=== PATIENT | female | born 1965 | race Caucasian/White ===

== ENCOUNTER 2016-10-28 01:38 | Emergency (ER) | payer MEDICAID, OTHER ==
[~2016-10-28] VITALS: Ht 157.5 cm; Wt 49.5 kg
[2016-10-28 01:55] VITALS: Ht 157.5 cm; Wt 49.5 kg
[2016-10-28] MEDS ORDERED: hydrALAzine 20 MG INJ IV ONE (02:30)
[2016-10-28 02:31] LABS: ADD SCAN DIFF NO
[2016-10-28 02:33] LABS: ABNORMAL IP MESSAGE 1; HEMATOCRIT 32.5 % (37.0-47.0); MEAN CORPUSCULAR HEMOGLOBIN 25.9 pg (29.0-33.0); MEAN CORPUSCULAR HGB CONC 30.8 g/dl (32.0-37.0); MEAN CORPUSCULAR VOLUME 84.2 fl (82.0-101.0); MEAN PLATELET VOLUME 9.3 fl (7.4-10.4); PLATELET COUNT 181 10^3/UL (140-415); RED BLOOD COUNT 3.86 10^6/ul (4.20-5.40); RED CELL DISTRIBUTION WIDTH 18.8 % (11.5-14.5); WHITE BLOOD COUNT 12.8 10^3/ul (4.8-10.8)
[2016-10-28 02:48] LABS: INR 1.03; PARTIAL THROMBOPLASTIN TIME 33.2 Sec (25.0-35.0); PROTIME 13.5 Sec (12.2-14.2); PT RATIO 1.1
[2016-10-28 03:00] LABS: LYMPHOCYTES # 10.8 10^3/ul (0.8-2.9); PLATELET ESTIMATE PLT APPEAR ADEQUATE
[2016-10-28] MEDS ORDERED: NAPR220C2 PO (03:04)
[2016-10-28] MEDS ORDERED: OMEG10006 PO (03:04)
[2016-10-28] MEDS ORDERED: OMEG300C3 PO (03:04)
[2016-10-28] MEDS ORDERED: CITRACAL PO (03:04)
[2016-10-28] MEDS ORDERED: IRON1TAB8 PO (03:04)
[2016-10-28] MEDS ORDERED: [UNRECOGNIZED DRUG - OTHER] (03:04)
[2016-10-28] MEDS ORDERED: LORAZEPAM 2 MG INJ IV ONE (03:30)
[2016-10-28 03:33] LABS: ALANINE AMINOTRANSFERASE 59 IU/L (13-69); ALBUMIN 4.2 g/dl (3.3-4.9); ALBUMIN/GLOBULIN RATIO 1.07; ALKALINE PHOSPHATASE 346 IU/L (42-121); ANION GAP 12 (8-16); ASPARTATE AMINO TRANSFERASE 75 IU/L (15-46); BILIRUBIN,INDIRECT 0.2 mg/dl (0-1.1); BILIRUBIN,TOTAL 0.2 mg/dl (0.2-1.3); BLOOD UREA NITROGEN 16 mg/dl (7-20); CALCIUM 9.2 mg/dl (8.4-10.2); CARBON DIOXIDE 25 mmol/L (21-31); CHLORIDE 105 mmol/L (97-110); CREATININE 0.86 mg/dl (0.44-1.00); GLUCOSE 107 mg/dl (70-220); POTASSIUM 3.8 mmol/L (3.5-5.1); SODIUM 138 mmol/L (135-144); TOTAL PROTEIN 8.1 g/dl (6.1-8.1)
[2016-10-28 03:46] LABS: B-TYPE NATRIURETIC PEPTIDE 248 PG/ML (0-125)
[2016-10-28 03:48] LABS: TROPONIN-I < 0.012 ng/ml (0.00-0.12)
[2016-10-28 04:30] VITALS: BP 129/76; PULSE 114; RESP 20
--- NOTE | 2016-10-28 04:47 | ERD ---
ER Documentation Chief Complaint Date/Time DATE: 10/28/16 TIME: 04:46 Chief Complaint bilateral arm pain started today HPI This is a 50-year-old female consequence of bilateral pain started today. She has been going on over the past 6 months. It starts in her neck and radiates down her arms. No fevers no chills. No nausea no vomiting. No other current complaints. ROS All systems reviewed and are negative except as per history of present illness. Medications Home Meds Reported Medications [place]-3 Fatty Acids (OMEGA-3) 1,000 Mg Capsule, 1000 MG PO, CAP 10/28/16 [place]-3 Fatty Acids (Fish Oil) 300 Mg Capsule, 300 MG PO, CAP 10/28/16 Calcium Citrate* (Citracal*) 950 Mg Tab, 950 MG PO DAILY, TAB 10/28/16 Iron-Multivits,Stress Formula (Stress Formula with Iron) 1 Each Tablet, 1 TAB PO DAILY, TAB 10/28/16 Naproxen* (Aleve*) 220 Mg Capsule, 440 MG PO PRN, #60 CAP 10/28/16 Discontinued Reported Medications [Art] No Conflict Check 10/28/16 Allergies Allergies: Coded Allergies: No Known Allergy (Unverified , 10/28/16) PMhx/Soc Medical and Surgical Hx: pt denies Medical Hx History of Surgery: Yes (CHOLECYSTECTOMY) Anesthesia Reaction: No Hx Neurological Disorder: No Hx Respiratory Disorders: No Hx Cardiac Disorders: No Hx Psychiatric Problems: No Hx Miscellaneous Medical Probl: No Hx Alcohol Use: No Hx Substance Use: No Hx Tobacco Use: No Smoking Status: Never smoker Physical Exam Vitals Vital Signs Date Time Temp Pulse Resp B/P Pulse Ox O2 Delivery O2 Flow Rate FiO2 10/28/16 02:56 111 22 148/96 99 Room Air 10/28/16 01:55 99.8 109 20 144/115 98 Physical Exam Const: [] Head: Atraumatic Eyes: Normal Conjunctiva ENT: Normal External Ears, Nose and Mouth. Neck: Full range of motion..~ No meningismus. Resp: Clear to auscultation bilaterally Cardio: Regular rate and rhythm, no murmurs Abd: Soft, non tender, non distended. Normal bowel sounds Skin: No petechiae or rashes Back: No midline or flank tenderness Ext: No cyanosis, or edema Neur: Awake and alert Psych: Normal Mood and Affect Result Diagram: 10/28/1620410/28/16 0205 Results 24 hrs Laboratory Tests Test 10/28/16 02:05 10/28/16 02:09 White Blood Count 12.810^3/ul Red Blood Count 3.8610^6/ul Hemoglobin 10.0g/dl Hematocrit 32.5% Mean Corpuscular Volume 84.2fl Mean Corpuscular Hemoglobin 25.9pg Mean Corpuscular Hemoglobin Concent 30.8g/dl Red Cell Distribution Width 18.8% Platelet Count 57812^3/UL Mean Platelet Volume 9.3fl Neutrophils % 8.0% Lymphocytes % 84.0% Monocytes % 8.0% Neutrophils # 1.010^3/ul Lymphocytes # 10.810^3/ul Monocytes # 1.010^3/ul Platelet Estimate PLT APPEAR ADEQUATE Prothrombin Time 13.5Sec Prothrombin Time Ratio 1.1 INR International Normalized Ratio 1.03 Activated Partial Thromboplast Time 33.2Sec Sodium Level 138mmol/L Potassium Level 3.8mmol/L Chloride Level 105mmol/L Carbon Dioxide Level 25mmol/L Anion Gap 12 Blood Urea Nitrogen 16mg/dl Creatinine 0.86mg/dl Glucose Level 107mg/dl Calcium Level 9.2mg/dl Total Bilirubin 0.2mg/dl Direct Bilirubin 0.00mg/dl Indirect Bilirubin 0.2mg/dl Aspartate Amino Transf (AST/SGOT) 75IU/L Alanine Aminotransferase (ALT/SGPT) 59IU/L Alkaline Phosphatase 346IU/L Troponin I < 0.012ng/ml B-Type Natriuretic Peptide 248PG/ML Total Protein 8.1g/dl Albumin 4.2g/dl Globulin 3.90g/dl Albumin/Globulin Ratio 1.07 Bedside Glucose 99mg/dL Current Medications Medications (Trade) Dose Ordered Sig/Saniya Route PRN Reason Start Time Stop Time Status Last Admin Dose Admin Hydralazine HCl (Apresoline) 20 mg ONCE ONCE IV 10/28/16 02:30 10/28/16 02:31 DC 10/28/16 02:24 Lorazepam (Ativan) 1 mg ONCE ONCE IV 10/28/16 03:30 10/28/16 03:31 DC 10/28/16 03:51 Procedures/MDM EKG: Rate/Rhythm: [Normal Sinus Rhythm] QRS, ST, T-waves: [No changes consistent w/ acute ischemia] Impression: [No evidence of ischemia or arrhythmia] Chest X-ray 1V Interpreted by me: Soft Tissue: No acute abnormalities Bones: No acute abnormalities Mediastinum/Cardiac Silhouette/Lungs: [No acute abnormalities] Patient's thoracic symptoms have stabilized while in the department and are stable for outpatient follow up. Exam and work up not consistent w/ ischemia, arrhythmia, PE or dissection. Symptomology consistent with cervical radiculopathy. The resolution of the administration of benzodiazepine. Patient will be discharged home a short course. Follow-up with PCP. Departure Diagnosis: Primary Impression: Cervical radiculopathy Additional Impression: Anxiety Condition: Stable BIGG HERNÁNDEZ Oct 28, 2016 04:47
[2016-10-28] MEDS ORDERED: LORA1TAB PO (04:48)
--- NOTE | 2016-10-28 07:52 | RADRPT ---
PROCEDURE: XR Chest. CLINICAL INDICATION: Abdominal pain TECHNIQUE: A single AP view of the chest was obtained. COMPARISON: None. FINDINGS: No focal airspace opacification, pleural effusion or pneumothorax is seen. The cardiomediastinal si lhouette is within normal limits for size. The osseous structures are unremarkable. IMPRESSION: No radiographic evidence of acute cardiopulmonary disease. RPTAT: HH .Brie Enamorado MD, MD Date Time Electronically viewed and signed by .Brie Enamorado MD, on 10/28/2016 07:52 .G/
== END 2016-10-28 04:53 | disposition home or self-care (01) ==
LOC: FTE 01:38 → E/R 04:53
DX: M54.12 Radiculopathy, cervical region (principal); F41.9 Anxiety disorder, unspecified; R10.9 Unspecified abdominal pain
CPT/HCPCS: 36415; 71010; 80053; 82962; 83880; 84484; 85025; 85610; 85730; 93005; 96374; 96375; J0360; J2060; Z7502

== ENCOUNTER 2016-12-31 02:19 | Emergency (ER) | payer MEDICAID ==
[~2016-12-31] VITALS: Ht 160 cm; Wt 48.0 kg
[~2016-12-31 02:19] MED LIST: CITRACAL PO; IRON1TAB8 PO; LORA1TAB PO; NAPR220C2 PO; OMEG10006 PO; OMEG300C3 PO
[2016-12-31 02:24] VITALS: Ht 160 cm; Wt 48.0 kg
[2016-12-31] MEDS ORDERED: ONDANSETRON 4 MG INJ IV STA (03:11)
[2016-12-31] MEDS ORDERED: morphine 4 MG/ML VIAL IV STA (03:11)
[2016-12-31] MEDS ORDERED: SOD CHLORIDE 0.9% 1,000 ML IV STA (03:11)
[2016-12-31 03:45] VITALS: BP 152/101; PULSE 98; RESP 20; TEMP 97.9
[2016-12-31] MEDS ORDERED: MULT9LIQ4 PO (04:02)
[2016-12-31] MEDS ORDERED: GEMF600T60 PO (04:02)
[2016-12-31] MEDS ORDERED: IPRA3AMP INHALATION (04:02)
[2016-12-31] MEDS ORDERED: UDMYL PO (04:02)
[2016-12-31] MEDS ORDERED: MAGN2400 PO (04:02)
[2016-12-31] MEDS ORDERED: BISA10SU55 RC (04:02)
[2016-12-31] MEDS ORDERED: LANT3I SC (04:02)
--- NOTE | 2016-12-31 04:15 | RADRPT ---
PROCEDURE: Abdominal ultrasound, limited. CLINICAL INDICATION: Abdominal pain. TECHNIQUE: Multiple real-time images were acquired of the patient's right upper abdomen utilizing a high resolution transducer. COMPARISON: None FINDINGS: The liver demonstrates increased echogenicity and size measuring 18.0 cm. There is no focal mass or intrahepatic biliary ductal dilatation. The portal vein is patent. The patient is status post cho lecystectomy. The common bile duct measures 4.1 mm in maximal dimension. The visualized portions o f the pancreas are unremarkable. No free fluid is identified. The right kidney is normal size and echogenicity measuring 9.8 cm. There is no focal renal mass or echogenic calculus identified. There is no obstructive uropathy. IMPRESSION: Enlarged liver with fatty infiltration. Status post cholecystectomy. .Gera Rangel MD, MD Date Time Electronically viewed and signed by .Gera Rangel MD, MD on 12/31/2016 04:15 .T/
[2016-12-31] MEDS ORDERED: HYDR-906 PO (04:25)
[2016-12-31] MEDS ORDERED: ACET325T45 PO (04:25)
[2016-12-31] MEDS ORDERED: SENN-53 PO (04:25)
[2016-12-31] MEDS ORDERED: [UNRECOGNIZED DRUG - CODE] PO (04:25)
[2016-12-31] MEDS ORDERED: OLAN5TAB5 PO (04:29)
[2016-12-31] MEDS ORDERED: CYAN100080 PO (04:29)
[2016-12-31] MEDS ORDERED: ASCO500S2 GTB (04:29)
[2016-12-31 04:35] LABS: ABNORMAL IP MESSAGE 1; BASOPHIL # 0.1 10^3/ul (0.0-0.1); BASOPHILS % 1.2 % (0.0-2.0); HEMATOCRIT 28.3 % (37.0-47.0); HEMOGLOBIN 8.8 g/dl (12.0-16.0); LYMPHOCYTES # 9.7 10^3/ul (0.8-2.9); LYMPHOCYTES % 86.5 % (15.0-51.0); MEAN CORPUSCULAR HEMOGLOBIN 24.6 pg (29.0-33.0); MEAN CORPUSCULAR HGB CONC 31.1 g/dl (32.0-37.0); MEAN CORPUSCULAR VOLUME 79.3 fl (82.0-101.0); MEAN PLATELET VOLUME 9.1 fl (7.4-10.4); MONOCYTE # 0.8 10^3/ul (0.3-0.9); MONOCYTES % 6.9 % (0.0-11.0); NEUTROPHILS % 5.2 % (39.0-77.0); NUCLEATED RED BLOOD CELLS% 0.2 /100WBC (0.0-0.0); PLATELET COUNT 191 10^3/UL (140-415); RED BLOOD COUNT 3.57 10^6/ul (4.20-5.40); RED CELL DISTRIBUTION WIDTH 19.4 % (11.5-14.5); WHITE BLOOD COUNT 11.2 10^3/ul (4.8-10.8)
[2016-12-31 04:41] LABS: ADD UMIC YES; UR ASCORBIC ACID NEGATIVE (NEGATIVE); UR BILIRUBIN (Dip) NEGATIVE (NEGATIVE); UR BLOOD (Dip) 1+ mg/dL (NEGATIVE); UR CLARITY SLIGHTLY CLOUDY (CLEAR); UR COLOR YELLOW (YELLOW); UR GLUCOSE (Dip) NEGATIVE (NEGATIVE); UR KETONES (Dip) NEGATIVE (NEGATIVE); UR LEUKOCYTE ESTERASE (Dip) 2+ Leu/ul (NEGATIVE); UR NITRITE (Dip) NEGATIVE (NEGATIVE); UR RBC 21 /HPF (0-5); UR SPECIFIC GRAVITY (Dip) 1.018 (1.003-1.030); UR SQUAMOUS EPITHELIAL CELL FEW /HPF (FEW); UR TOTAL PROTEIN (Dip) 1+ mg/dl (NEGATIVE); UR UROBILINOGEN (Dip) NEGATIVE (NEGATIVE)
[2016-12-31 04:46] LABS: POSITIVE DIFF @See below
[2016-12-31 04:56] LABS: ALBUMIN 3.1 g/dl (3.3-4.9); ALBUMIN/GLOBULIN RATIO 0.64; BILIRUBIN,INDIRECT 0.1 mg/dl (0-1.1); BILIRUBIN,TOTAL 0.1 mg/dl (0.2-1.3); CALCIUM 9.1 mg/dl (8.4-10.2); CREATININE 0.81 mg/dl (0.44-1.00); POTASSIUM 4.2 mmol/L (3.5-5.1); TOTAL PROTEIN 7.9 g/dl (6.1-8.1)
[2016-12-31] MEDS ORDERED: MELO-110 PO (05:17)
[2016-12-31] MEDS ORDERED: RANI150T9 PO (05:17)
--- NOTE | 2016-12-31 05:17 | ERD ---
ER Documentation Chief Complaint Date/Time DATE: 12/31/16 TIME: 05:16 Chief Complaint upper abd pain since 6 hours ago HPI 51-year-old female epigastric abdominal disease asthma. Patient has history of gastritis. Pain mild to moderate intensity with no exacerbating or alleviating factors. No fevers no chills. No other current complaints. ROS All systems reviewed and are negative except as per history of present illness. Medications Home Meds Active Scripts Lorazepam* (Lorazepam*) 1 Mg Tablet, 1 MG PO Q8, #10 TAB Prov:BIGG HERNÁNDEZ 10/28/16 Reported Medications Olanzapine* (Zyprexa*) 5 Mg Tablet, 5 MG PO DAILY, #30 TAB 12/31/16 Ascorbic Acid* (Vitamin C* Liq) 500 Mg/5 Ml Syrup, 500 MG GTB DAILY for SUPPLEMENT, ML 12/31/16 Cyanocobalamin* (Vitamin B-12*) 1,000 Mcg Tablet.sa, 1000 MCG PO DAILY for ANEMIA, TAB 12/31/16 Valproic Acid (As Sodium Salt) (Valproic Acid) 500 Mg/10 Ml Solution, 500 MG PO BID 12/31/16 Acetaminophen* (Acetaminophen*) 325 Mg Tablet, 650 MG PO Q4H Y for PAIN AND OR ELEVATED TEMP, #30 TAB Give 2 tabs PO every Q6H for MILD pain 12/31/16 Sennosides* (Senna Lax*) 8.6 Mg Tablet, 1 TAB PO Q12H for CONSTIPATION, TAB Give 2 tablets by mouth Q12H for CONSTIPATION HOLD FOR LBM. 12/31/16 Hydrocodone/Acetaminophen ([place] 5-325 Tablet) 1 Each Tablet, 1 EACH PO, TAB Give 1 tablet by mouth PRN for MODERATETO SEVERE PAIN (4-10)Q12H 12/31/16 Magaldrate/Simethicone* (Mag-Al Plus Suspension*) 30 Ml Oral.susp, 30 ML PO Q12H Y for BLOATING/GI UPSET, ML 12/31/16 Multivit &Minerals/Ferrous Fum (MULTIVITAMIN LIQUID) 9 Mg/15 Ml Liquid, 5 ML PO GIVE 5ml BY MOUTH DAILY FOR SUPPLEMENT 12/31/16 Magnesium Hydroxide (Milk of Magnesia) 2,400 Mg/10 Ml Oral.susp, 2400 MG PO GIVE 30ml BY MOUTH PRN for CONSTIPATION 12/31/16 Insulin Glargine* (Lantus*) 100 Unit/Ml Soln, 20 UNIT SC DAILY, #1 VIAL INJECT 20UNIT SC ONE TIME DAILY FOR DM 12/31/16 Gemfibrozil* (Gemfibrozil*) 600 Mg Tablet, 600 MG PO Q12, TAB GIVE 1TAB PO Q12H HOLD HLD 12/31/16 Ipratropium-Albuterol (Ipratropium-Albuterol) 0.5-3 Mg/3 Ml Ampul.neb, 3 ML INHALATION Q6, #30 VIAL 1 unit inhale orally every 12hours fr SOB via HHN 12/31/16 Bisacodyl (Dulcolax) 10 Mg Supp.rect, 10 MG RC for CONSTIPATION, SUPP.RECT 12/31/16 [place]-3 Fatty Acids (OMEGA-3) 1,000 Mg Capsule, 1000 MG PO, CAP 10/28/16 Calcium Citrate* (Citracal*) 950 Mg Tab, 950 MG PO DAILY, TAB 10/28/16 Iron-Multivits,Stress Formula (Stress Formula with Iron) 1 Each Tablet, 1 TAB PO DAILY, TAB 10/28/16 Naproxen* (Aleve*) 220 Mg Capsule, 440 MG PO PRN, #60 CAP 10/28/16 Discontinued Reported Medications [place]-3 Fatty Acids (Fish Oil) 300 Mg Capsule, 300 MG PO, CAP 10/28/16 Allergies Allergies: Coded Allergies: No Known Allergy (Unverified , 10/28/16) PMhx/Soc History of Surgery: Yes (CHOLECYSTECTOMY) Anesthesia Reaction: No Hx Neurological Disorder: No Hx Respiratory Disorders: No Hx Cardiac Disorders: No Hx Psychiatric Problems: No Hx Miscellaneous Medical Probl: No Hx Alcohol Use: No Hx Substance Use: No Hx Tobacco Use: No Smoking Status: Never smoker Physical Exam Vitals Vital Signs Date Time Temp Pulse Resp B/P Pulse Ox O2 Delivery O2 Flow Rate FiO2 12/31/16 03:45 97.9 98 20 152/101 97 Room Air 12/31/16 02:24 98.2 116 20 143/89 99 Physical Exam Const: [] Head: Atraumatic Eyes: Normal Conjunctiva ENT: Normal External Ears, Nose and Mouth. Neck: Full range of motion..~ No meningismus. Resp: Clear to auscultation bilaterally Cardio: Regular rate and rhythm, no murmurs Abd: Soft, non tender, non distended. Normal bowel sounds Skin: No petechiae or rashes Back: No midline or flank tenderness Ext: No cyanosis, or edema Neur: Awake and alert Psych: Normal Mood and Affect Result Diagram: 12/31/160 12/31/16409 Results 24 hrs Laboratory Tests Test 12/31/16 04:10 White Blood Count 11.210^3/ul Red Blood Count 3.5710^6/ul Hemoglobin 8.8g/dl Hematocrit 28.3% Mean Corpuscular Volume 79.3fl Mean Corpuscular Hemoglobin 24.6pg Mean Corpuscular Hemoglobin Concent 31.1g/dl Red Cell Distribution Width 19.4% Platelet Count 85382^3/UL Mean Platelet Volume 9.1fl Neutrophils % 5.2% Lymphocytes % 86.5% Monocytes % 6.9% Eosinophils % 0.0% Basophils % 1.2% Nucleated Red Blood Cells % 0.2/100WBC Neutrophils # (Manual) 110^3/ul Lymphocytes # 9.710^3/ul Monocytes # 0.810^3/ul Eosinophils # 0.010^3/ul Basophils # 0.110^3/ul Nucleated Red Blood Cells # 0.010^3/ul Urine Color YELLOW Urine Clarity SLIGHTLY CLOUDY Urine pH 6.0 Urine Specific [place] 1.018 Urine Ketones NEGATIVEmg/dL Urine Nitrite NEGATIVEmg/dL Urine Bilirubin NEGATIVEmg/dL Urine Urobilinogen NEGATIVEmg/dL Urine Leukocyte Esterase 2+Shruthi/ul Urine Microscopic RBC 21/HPF Urine Microscopic WBC 2/HPF Urine Squamous Epithelial Cells FEW/HPF Urine Hemoglobin 1+mg/dL Urine Glucose NEGATIVEmg/dL Urine Total Protein 1+mg/dl Sodium Level 140mmol/L Potassium Level 4.2mmol/L Chloride Level 101mmol/L Carbon Dioxide Level 24mmol/L Anion Gap 19 Blood Urea Nitrogen 24mg/dl Creatinine 0.81mg/dl Glucose Level 103mg/dl Calcium Level 9.1mg/dl Total Bilirubin 0.1mg/dl Direct Bilirubin 0.00mg/dl Indirect Bilirubin 0.1mg/dl Aspartate Amino Transf (AST/SGOT) 47IU/L Alanine Aminotransferase (ALT/SGPT) 46IU/L Alkaline Phosphatase 419IU/L Total Protein 7.9g/dl Albumin 3.1g/dl Globulin 4.80g/dl Albumin/Globulin Ratio 0.64 Lipase 133U/L Current Medications Medications (Trade) Dose Ordered Sig/Saniya Route PRN Reason Start Time Stop Time Status Last Admin Dose Admin Sodium Chloride (NS) 1,000 ml @ 1,000 mls/hr Q1H STAT IV 12/31/16 03:11 12/31/16 04:10 DC 12/31/16 04:19 Morphine Sulfate (morphine) 4 mg ONCE STAT IV 12/31/16 03:11 12/31/16 03:13 DC 12/31/16 04:19 Ondansetron HCl (Zofran Inj) 4 mg ONCE STAT IV 12/31/16 03:11 12/31/16 03:13 DC 12/31/16 04:18 Procedures/MDM Medical decision-makin-year-old female with gastritis-like pain. At this point is clinically stable for outpatient management. Patient noted to be iron deficient anemia. Told to start of iron supplementation as an outpatient. At this point clinically stable. Will be discharged home. Follow-up in 8 hours for serial abdominal exams. Departure Diagnosis: Primary Impression: Abdominal pain Abdominal location: epigastric Qualified Code: R10.13 - Epigastric pain Condition: Stable BIGG HERNÁNDEZ Dec 31, 2016 05:17
== END 2016-12-31 06:30 | disposition home or self-care (01) ==
LOC: E/R 02:19
DX: R10.13 Epigastric pain (principal); J45.909 Unspecified asthma, uncomplicated
CPT/HCPCS: 36415; 76705; 80053; 81001; 83690; 85025; 96374; 96375; J2270; J2405; J7030; Z7502

== ENCOUNTER 2017-01-06 09:11 | Emergency (ER) | payer MEDICAID ==
[~2017-01-06] VITALS: Wt 54.5 kg
[~2017-01-06 09:11] MED LIST changes: +ACET325T45 PO; +ASCO500S2 GTB; +BISA10SU55 RC; +CYAN100080 PO; +GEMF600T60 PO; +HYDR-906 PO; +IPRA3AMP INHALATION; +LANT3I SC; +MAGN2400 PO; +MELO-110 PO; +MULT9LIQ4 PO; +OLAN5TAB5 PO; -OMEG300C3 PO; +RANI150T9 PO; +SENN-53 PO; +UDMYL PO; +[UNRECOGNIZED DRUG - CODE] PO
--- NOTE | 2017-01-06 11:37 | ERA ---
ER Documentation Chief Complaint Date/Time DATE: 01/06/17 TIME: 11:33 Chief Complaint muscle pain hx RA HPI 51-year-old female presented with a chief complaint of pain. Patient has rheumatoid arthritis and states that the pain has been worsening. Patient was seen by an urgent care 1 day ago and prescribed medication. Medication included naproxen and meloxicam. Patient states she has taken Aleve with moderate relief. Patient denies any rapidly progressive neurological deficits, or new symptoms aside from the pain of rheumatoid arthritis. States that the pain feels the same as it always has been just worse. States that the pain is all over. Described as dull. Patient has no other complaints and describes no other associated manifestations. Nursing notes have been reviewed and are consistent with history given. ROS All systems reviewed and are negative except as per history of present illness. Medications Home Meds Active Scripts Meloxicam* (Mobic*) 15 Mg Tablet, 15 MG PO DAILY, #30 TAB Prov:BIGG HERNÁNDEZ 12/31/16 Ranitidine Hcl* (Zantac*) 150 Mg Tablet, 150 MG PO BID Y for EPIGASTRIC PAIN, # 30 TAB Prov:BIGG HERNÁNDEZ 12/31/16 Lorazepam* (Lorazepam*) 1 Mg Tablet, 1 MG PO Q8, #10 TAB Prov:BIGG HERNÁNDEZ 10/28/16 Reported Medications Olanzapine* (Zyprexa*) 5 Mg Tablet, 5 MG PO DAILY, #30 TAB 12/31/16 Ascorbic Acid* (Vitamin C* Liq) 500 Mg/5 Ml Syrup, 500 MG GTB DAILY for SUPPLEMENT, ML 12/31/16 Cyanocobalamin* (Vitamin B-12*) 1,000 Mcg Tablet.sa, 1000 MCG PO DAILY for ANEMIA, TAB 12/31/16 Valproic Acid (As Sodium Salt) (Valproic Acid) 500 Mg/10 Ml Solution, 500 MG PO BID 12/31/16 Acetaminophen* (Acetaminophen*) 325 Mg Tablet, 650 MG PO Q4H Y for PAIN AND OR ELEVATED TEMP, #30 TAB Give 2 tabs PO every Q6H for MILD pain 12/31/16 Sennosides* (Senna Lax*) 8.6 Mg Tablet, 1 TAB PO Q12H for CONSTIPATION, TAB Give 2 tablets by mouth Q12H for CONSTIPATION HOLD FOR LBM. 12/31/16 Hydrocodone/Acetaminophen ([place] 5-325 Tablet) 1 Each Tablet, 1 EACH PO, TAB Give 1 tablet by mouth PRN for MODERATETO SEVERE PAIN (4-10)Q12H 12/31/16 Magaldrate/Simethicone* (Mag-Al Plus Suspension*) 30 Ml Oral.susp, 30 ML PO Q12H Y for BLOATING/GI UPSET, ML 12/31/16 Multivit &Minerals/Ferrous Fum (MULTIVITAMIN LIQUID) 9 Mg/15 Ml Liquid, 5 ML PO GIVE 5ml BY MOUTH DAILY FOR SUPPLEMENT 12/31/16 Magnesium Hydroxide (Milk of Magnesia) 2,400 Mg/10 Ml Oral.susp, 2400 MG PO GIVE 30ml BY MOUTH PRN for CONSTIPATION 12/31/16 Insulin Glargine* (Lantus*) 100 Unit/Ml Soln, 20 UNIT SC DAILY, #1 VIAL INJECT 20UNIT SC ONE TIME DAILY FOR DM 12/31/16 Gemfibrozil* (Gemfibrozil*) 600 Mg Tablet, 600 MG PO Q12, TAB GIVE 1TAB PO Q12H HOLD HLD 12/31/16 Ipratropium-Albuterol (Ipratropium-Albuterol) 0.5-3 Mg/3 Ml Ampul.neb, 3 ML INHALATION Q6, #30 VIAL 1 unit inhale orally every 12hours fr SOB via HHN 12/31/16 Bisacodyl (Dulcolax) 10 Mg Supp.rect, 10 MG RC for CONSTIPATION, SUPP.RECT 12/31/16 [place]-3 Fatty Acids (OMEGA-3) 1,000 Mg Capsule, 1000 MG PO, CAP 10/28/16 Calcium Citrate* (Citracal*) 950 Mg Tab, 950 MG PO DAILY, TAB 10/28/16 Iron-Multivits,Stress Formula (Stress Formula with Iron) 1 Each Tablet, 1 TAB PO DAILY, TAB 10/28/16 Naproxen* (Aleve*) 220 Mg Capsule, 440 MG PO PRN, #60 CAP 10/28/16 Discontinued Reported Medications [place]-3 Fatty Acids (Fish Oil) 300 Mg Capsule, 300 MG PO, CAP 10/28/16 Allergies Allergies: Coded Allergies: No Known Allergy (Unverified , 12/31/16) PMhx/Soc History of Surgery: Yes (CHOLECYSTECTOMY) Anesthesia Reaction: No Hx Neurological Disorder: No Hx Respiratory Disorders: No Hx Cardiac Disorders: No Hx Psychiatric Problems: No Hx Miscellaneous Medical Probl: No Hx Alcohol Use: No Hx Substance Use: No Hx Tobacco Use: No Physical Exam Vitals Vital Signs Date Time Temp Pulse Resp B/P Pulse Ox O2 Delivery O2 Flow Rate FiO2 01/06/17 10:14 100.5 85 20 135/88 98 Physical Exam Const: 51-year-old female in no acute distress sitting in the chair on initial presentation Head: Atraumatic Eyes: Normal Conjunctiva. PERRLA, EOMI bilaterally. ENT: Normal External Ears, Nose and Mouth. Neck: Full range of motion..~ No meningismus. Resp: Clear to auscultation bilaterally Cardio: Regular rate and rhythm, no murmurs. Radial pulses 2+ bilaterally. Cap refill less than 2 seconds. Abd: Soft, non tender, non distended. Normal bowel sounds Skin: No petechiae or rashes Back: No midline or flank tenderness Ext: Ulnar deviation of fingers. No cyanosis. Rheumatoid nodules on the hands bilaterally. Neur: Awake and alert Psych: Normal Mood and Affect Procedures/MDM 51-year-old female with a history of rheumatoid arthritis presenting for pain medication to control rheumatoid arthritis. Patient states that she has had moderate relief with Aleve. Patient is wanting lab work done for rheumatoid factor. I stated the patient that we cannot do rheumatoid factor rheumatoid specific medications from the ED as suggested that she see her PCP for referral to specialist. Patient said that she is however PCP and they have told her to obtain labs. I suggested the patient follow-up with PCP for more specific instructions. I have also instructed the patient continue Aleve and the medications given to her by the urgent care as directed. I have spoke with the patient regarding their condition and future management. They have verbally responded that they understand their status and treatment plan. The patients vitals are stable, and their current condition is appropriate for discharge. The patient will be given discharge instructions with return precautions. Departure Diagnosis: Primary Impression: Pain Additional Impression: History of rheumatoid arthritis Condition: Stable Patient Instructions: Living with Rheumatoid Arthritis Additional Instructions: Follow up with your PCP within the next 1-3 days for a more thorough evaluation and a possible referral to a specialist. Return the the emergency department immediately if symptoms worsen or change. If you have any questions regarding medications, ask your pharmacist or us before you leave. If any adverse reactions occur while taking your medications, discontinue the treatment and return to the emergency department immediately. Take your medications as directed, and complete the entire course of treatment. ASTRID LANCASTER PA-C Jan 06, 2017 11:37
== END 2017-01-06 12:38 | disposition home or self-care (01) ==
LOC: FTE 09:11
DX: R52 Pain, unspecified (principal); Z79.4 Long term (current) use of insulin; Z87.39 Personal history of other diseases of the musculoskeletal system and connective tissue
CPT/HCPCS: 99282